=== PATIENT | male | born 1930 | race Caucasian/White ===

== ENCOUNTER 2017-11-05 08:33 | Emergency (ER) | payer MEDICARE, MEDICAID, OTHER ==
--- NOTE | 2017-11-05 09:18 | EDM.PDOC ---
ED HPI GENERAL MEDICAL PROBLEM - General Chief Complaint: Lower Extremity Injury/Pain Stated Complaint: R LEG PAIN Time Seen by Provider: 11/05/17 08:49 Source of Information: Reports: Patient, Family () History Limitations: Reports: Other (Poor historian) - History of Present Illness INITIAL COMMENTS - FREE TEXT/NARRATIVE: The patient states that he developed left lower extremity tingling and numbness , especially from the knee down, 3 or 4 days ago, and right lower extremity tingling and numbness and pain yesterday. The patient states that he self- discontinued his Lyrica on 11/01/2017, because it was making him groggy. He does not know why he is on Lyrica, and both he and his are poor medical historians overall. Review of the patient's medical records, which are sparse, indicates that the patient has a history of varicella zoster. The patient's PCP is Dr. Annette Gonzalez at the [facility]. - Related Data Allergies Allergy/AdvReac Type Severity Reaction Status Date / Time No Known Allergies Allergy Verified 05/20/15 11:36 Home Meds: Home Meds Gabapentin [Neurontin] 300 mg PO ASDIRECTED 08/08/13 [History] Levothyroxine Sodium [Synthroid] 112 mcg PO DAILY 08/08/13 [History] Naproxen Sodium [Aleve] 2 tab PO ASDIRECTED PRN 09/21/13 [History] Psyllium Seed/Aspartame [Metamucil Powder] 0 gm PO DAILY 10/30/14 [History] Sennosides/Docusate Sodium [Senna-Docusate Sodium Tablet] 1 tab PO BID 10/30/14 [History] Spironolactone [Aldactone] 25 mg PO DAILY 10/30/14 [History] Tamsulosin [Flomax] 0.4 mg PO BEDTIME 10/30/14 [History] Atenolol 12.5 mg PO DAILY 11/05/17 [History] Capsaicin [Arthritis Pain Relief] 1 applic TOP ASDIRECTED PRN 11/05/17 [History] Gabapentin [Neurontin] 600 mg PO QAM 11/05/17 [History] Hydroxychloroquine Sulfate 200 mg PO DAILY 11/05/17 [History] Omeprazole 20 mg PO DAILY 11/05/17 [History] predniSONE [Prednisone] 5 mg PO DAILY 11/05/17 [History] traMADol [Ultram] 50 mg PO DAILY 11/05/17 [History] Past Medical History HEENT History: Reports: Impaired Vision Other HEENT History: uses hearing aids bilaterally, wears eyeglasses. 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 ED EXAM, GENERAL - Physical Exam Exam: See Below Exam Limited By: No Limitations General Appearance: Alert, WD/WN, No Apparent Distress Eye Exam: Bilateral Eye: EOMI, Normal Inspection Ears: Normal External Exam, Hearing Loss (did not bring his hearing aids) Nose: Normal Inspection, No Blood Throat/Mouth: Normal Inspection, Normal Lips, Normal Voice, No Airway Compromise Head: Atraumatic, Normocephalic Neck: Normal Inspection, Full Range of Motion Respiratory/Chest: No Respiratory Distress, Lungs Clear, Normal Breath Sounds, No Accessory Muscle Use Cardiovascular: Normal Peripheral Pulses, Regular Rate, Rhythm, No Edema, No Gallop, No JVD, No Murmur, No Rub Peripheral Pulses: 4+: Radial (L), Radial (R) GI/Abdominal: Normal Bowel Sounds, Soft, Non-Tender, No Organomegaly, No Distention, No Abnormal Bruit, No Mass (Male) Exam: Deferred Rectal (Males) Exam: Deferred Back Exam: Normal Inspection, Full Range of Motion, NT Extremities: Normal Inspection, Normal Range of Motion, Non-Tender, Normal Capillary Refill, No Pedal Edema Neurological: Alert, Oriented, Normal Cognition, No Motor/Sensory Deficits Psychiatric: Normal Affect Skin Exam: Warm, Dry, Intact, Normal Color, No Rash Course - Vital Signs Last Recorded V/S: Last Vital Signs Temp 36.4 C 11/05/17 08:40 Pulse 68 11/05/17 08:40 Resp 18 11/05/17 08:40 BP 156/131 H 11/05/17 08:40 Pulse Ox 96 11/05/17 08:40 - Re-Assessments/Exams Free Text/Narrative Re-Assessment/Exam: 11/05/17 09:14 The patient's lower extremity tingling, numbness, and discomfort, is almost certainly due to the discontinuation of his Lyrica, which was most likely prescribed to treat his peripheral neuropathy. I would speculate that the peripheral neuropathy is secondary to prior varicella-zoster, however, I have no record of that. I'm recommending that the patient restart his Lyrica, then follow-up with his prescribing physician, Dr. Gonzalez, at the [facility], at the next available appointment , to discuss treatment options. Departure - Departure Time of Disposition: 09:12 Disposition: Home, Self-Care 01 Condition: Good Clinical Impression: Peripheral neuropathy - Discharge Information *PRESCRIPTION DRUG MONITORING PROGRAM REVIEWED*: Not Applicable *COPY OF PRESCRIPTION DRUG MONITORING REPORT IN PATIENT YURI: Not Applicable Referrals: Annette Gonzalez DO [Primary Care Provider] - Additional Instructions: You were seen in the emergency room for tingling, numbness, and pain of both of your lower extremities, after discontinuing your Lyrica on 11/01/2017. Your lower extremity symptoms are MOST LIKELY due to the discontinuation of your Lyrica. We recommend that you restart your Lyrica, as previously prescribed, then follow -up with your PCP, Dr. Gonzalez, at the [facility], at the next available appointment, to discuss treatment options. Any other problems, please do not hesitate to return to the ER.
[2017-11-05 09:43] VITALS: BP 108/59
== END 2017-11-05 09:25 | disposition home or self-care (01) ==
LOC: JD.ED 08:33
DX: G62.9 Polyneuropathy, unspecified (principal); I10 Essential (primary) hypertension; Z79.899 Other long term (current) drug therapy
CPT/HCPCS: 99283

== ENCOUNTER 2019-03-02 10:48 | Inpatient (IN) | payer OTHER, MEDICARE, MEDICAID ==
[2019-03-02] MEDS ORDERED: HYDROmorphone 0.5 MG/0.5 ML Syringe IVPUSH ONE (11:55)
[2019-03-02] MEDS ORDERED: Sodium Chloride 0.9% 10 ML Syringe FLUSH PRN (11:56)
--- NOTE | 2019-03-02 12:30 | EDM.PDOC ---
ED HPI GENERAL MEDICAL PROBLEM - General Chief Complaint: Lower Extremity Injury/Pain Stated Complaint: FALL/ ARM INJURY AND LEFT SIDE HIP PAIN Time Seen by Provider: 03/02/19 11:11 Source of Information: Reports: Patient, Family (), RN Notes Reviewed History Limitations: Reports: No Limitations - History of Present Illness INITIAL COMMENTS - FREE TEXT/NARRATIVE: Patient is an 88-year-old male who presents to the ED for evaluation of a fall at home today. The patient notes that around 4 AM, he was getting up for the morning, and he was in his closet and ended up tripping on the carpet, and then fell cross-hankins onto a chair. He states he has pain in his left shoulder and left hip after this. Patient denies any sort of being dizzy before this accident, he states he couldn't walk after the accident, however is very painful to do so. He would rate his pain in his hip at a 9 out of 10, and the shoulder 7 out of 10. He does note decreased range of motion of the shoulders, but this is chronic for him, and is not worse than normal. Patient was unsure if he hit his head or not, his states that he seems a little bit more fuzzy than he normally is. He takes baby aspirin daily, but is on no other blood thinners. This fall also did result in a very large skin tear of his left upper arm that the bandaged with a bandage. does note that he has a past medical history positive for rheumatoid arthritis, and has difficulty getting around the house normally. Left Shoulder Pain Score (Numeric/FACES): 7 Left Hip Pain Score (Numeric/FACES): 7 - Related Data Allergies Allergy/AdvReac Type Severity Reaction Status Date / Time No Known Allergies Allergy Verified 03/02/19 11:07 Home Meds: Home Meds Levothyroxine Sodium [Synthroid] 112 mcg PO DAILY 08/08/13 [History] Spironolactone [Aldactone] 25 mg PO DAILY 10/30/14 [History] Tamsulosin [Flomax] 0.4 mg PO BEDTIME 10/30/14 [History] Hydroxychloroquine Sulfate 200 mg PO DAILY 11/05/17 [History] Omeprazole 20 mg PO DAILY 11/05/17 [History] predniSONE [Prednisone] 5 mg PO DAILY 11/05/17 [History] Cholecalciferol (Vitamin D3) [Vitamin D3] 2 tab PO DAILY 10/10/18 [History] Pregabalin [Lyrica] 50 mg PO BID 10/10/18 [History] Aspirin [Low Dose Aspirin EC] 81 mg PO DAILY 30 Days tablet. 10/13/18 [Rx] Rosuvastatin Calcium 20 mg PO DAILY #30 tablet 10/13/18 [Rx] Carvedilol [Coreg] 3.125 mg PO BID 03/02/19 [History] Lisinopril 2.5 mg PO DAILY 03/02/19 [History] Past Medical History HEENT History: Reports: Impaired Vision Other HEENT History: uses hearing aids bilaterally, wears eyeglasses. Cardiovascular History: Reports: Hypertension Other Cardiovascular History: edema Respiratory History: Reports: Other (See Below) Other Respiratory History: R) side lungs "not working very good." Gastrointestinal History: Reports: GERD Other Gastrointestinal History: Hernia Genitourinary History: Reports: BPH Other Genitourinary History: history of having some retention. Musculoskeletal History: Reports: RA Other Musculoskeletal History: muscle weakness, lack of coordination, muscle disuse atrophy, difficulty walking Neurological History: Reports: Other (See Below) Other Neuro History: forgetful at times Psychiatric History: Reports: Other (See Below) Other Psychiatric History: insomnia Endocrine/Metabolic History: Reports: Hypothyroidism Hematologic History: Reports: None Immunologic History: Reports: None Oncologic (Cancer) History: Reports: None Dermatologic History: Reports: Psoriasis Other Dermatologic History: herpes zoster (pain related to herpes zoster) - Infectious Disease History Infectious Disease History: Reports: Chicken Pox, Mumps, Shingles - Past Surgical History Cardiovascular Surgical History: Reports: Pacer GI Surgical History: Reports: Cholecystectomy, Hernia, Inguinal Musculoskeletal 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, Hip Replacement Social & Family History - Family History Family Medical History: Noncontributory - Tobacco Use Smoking Status *Q: Unknown Ever Smoked - Caffeine Use Caffeine Use: Reports: Coffee Other Caffeine Use: 2 cups/day Review of Systems - Review of Systems Review Of Systems: See Below Constitutional: Denies: Chills, Fever Eyes: Reports: Blurred Vision. Denies: Vision Change Ears: Denies: Dizziness Respiratory: Denies: Shortness of Breath Cardiovascular: Denies: Chest Pain GI/Abdominal: Denies: Abdominal Pain Skin: Reports: Bruising (multiple areas of bruising noted to entire body), Wound (large skin tear on upper outer Left arm) Neurological: Reports: Confusion ( states he is more "fuzzy" than he normally is). Denies: Dizziness, Headache, Pre-Existing Deficit, Seizure, Syncope, Trouble Speaking, Difficulty Walking, Weakness ED EXAM, GENERAL - Physical Exam Exam: See Below Exam Limited By: No Limitations General Appearance: Alert, WD/WN, No Apparent Distress Eye Exam: Bilateral Eye: EOMI, Normal Inspection, PERRL Ears: Normal External Exam, Normal Canal, Hearing Grossly Normal, Normal TMs Nose: Normal Inspection, Normal Mucosa, No Blood Throat/Mouth: Normal Inspection, Normal Lips, Normal Teeth, Normal Gums, Normal Oropharynx, Normal Voice, No Airway Compromise Head: Atraumatic, Normocephalic Neck: Normal Inspection Respiratory/Chest: No Respiratory Distress, Lungs Clear, Normal Breath Sounds, No Accessory Muscle Use, Chest Non-Tender Cardiovascular: Normal Peripheral Pulses, Regular Rate, Rhythm, No Edema, No Murmur Peripheral Pulses: 3+: Radial (L), Radial (R) GI/Abdominal: Normal Bowel Sounds, Soft, Non-Tender, No Distention, No Mass Extremities: Normal Inspection (multiple bruises over entire body), Normal Capillary Refill, Limited Range of Motion (of upper arms bilaterally, notes this is not decreased from normal for him) Neurological: Alert, Oriented, CN II-XII Intact, Normal Cognition, No Motor/ Sensory Deficits Psychiatric: Normal Affect, Normal Mood Skin Exam: Warm, Dry, Normal Color, No Rash, Ecchymosis (multiple bruises in various stages of healing all over body.), Wound/Incision (large skin tear on upper outer Left arm) Course - Vital Signs Last Recorded V/S: Last Vital Signs Temp 98.5 F 03/02/19 11:04 Pulse 68 03/02/19 11:04 Resp 16 03/02/19 11:04 BP 115/75 03/02/19 11:04 Pulse Ox 97 03/02/19 11:04 - Orders/Labs/Meds Orders: Active Orders 24 hr Category Date Time Status Peripheral IV Care [RC] . DIRECTED Care 03/02/19 11:56 Active Sodium Chloride 0.9% [Saline Flush] Med 03/02/19 11:56 Active 10 ml FLUSH ASDIRECTED PRN Peripheral IV Insertion Adult [OM.PC] Routine Oth 03/02/19 11:56 Ordered Medication Orders Sodium Chloride (Saline Flush) 10 ml FLUSH ASDIRECTED PRN PRN Reason: Keep Vein Open Last Admin: 03/02/19 12:10 Dose: 10 ml Labs: Laboratory Tests 03/02/19 03/02/19 Range/Units 12:10 12:10 WBC 6.00 (4.23-9.07) K/mm3 RBC 3.69 L (4.63-6.08) M/mm3 Hgb 11.6 L D (13.7-17.5) gm/dl Hct 35.9 L (40.1-51.0) % MCV 97.3 H D (79.0-92.2) fl MCH 31.4 (25.7-32.2) pg MCHC 32.3 (32.2-35.5) g/dl RDW Std Deviation 52.0 H (35.1-43.9) fL Plt Count 104 L (163-337) K/mm3 MPV 9.5 (9.4-12.3) fl Neut % (Auto) 77.6 H (34.0-67.9) % Lymph % (Auto) 12.0 L (21.8-53.1) % [place] % (Auto) 8.7 (5.3-12.2) % Eos % (Auto) 1.3 (0.8-7.0) Baso % (Auto) 0.2 (0.1-1.2) % Neut # (Auto) 4.66 (1.78-5.38) K/mm3 Lymph # (Auto) 0.72 L (1.32-3.57) K/mm3 [place] # (Auto) 0.52 (0.30-0.82) K/mm3 Eos # (Auto) 0.08 (0.04-0.54) K/mm3 Baso # (Auto) 0.01 (0.01-0.08) K/mm3 Sodium 138 (136-145) mEq/L Potassium 4.4 (3.5-5.1) mEq/L Chloride 105 (98-107) mEq/L Carbon Dioxide 28 (21-32) mEq/L Anion Gap 9.4 (5-15) BUN 20 H (7-18) mg/dL Creatinine 1.2 (0.7-1.3) mg/dL Est Cr Clr Drug Dosing 37.66 mL/min Estimated GFR (MDRD) 57 (>60) mL/min BUN/Creatinine Ratio 16.7 (14-18) Glucose 104 (83-115) mg/dL Calcium 8.4 L (8.5-10.1) mg/dL Total Bilirubin 0.4 (0.2-1.0) mg/dL AST 47 H (15-37) U/L ALT 41 (16-63) U/L Alkaline Phosphatase 92 (46-116) U/L Total Protein 6.0 L (6.4-8.2) g/dl Albumin 2.9 L (3.4-5.0) g/dl Globulin 3.1 gm/dL Albumin/Globulin Ratio 0.9 L (1-2) Meds: Medications Generic Name Dose Route Start Last Admin Trade Name Freq PRN Reason Stop Dose Admin Sodium Chloride 10 ml 03/02/19 11:56 03/02/19 12:10 Saline Flush FLUSH 10 ml ASDIRECTED PRN Administration Keep Vein Open Discontinued Medications Generic Name Dose Route Start Last Admin Trade Name Freq PRN Reason Stop Dose Admin Hydromorphone HCl 0.5 mg 03/02/19 11:55 03/02/19 12:11 Dilaudid IVPUSH 03/02/19 11:56 0.5 mg ONETIME ONE Administration - Re-Assessments/Exams Free Text/Narrative Re-Assessment/Exam: 03/02/19 12:36 Patient presents to the ED for evaluation of a fall. Did order L shoulder x-ray , left hip x-ray, and a head CT for evaluation did also order an IV be placed with basic labs including CBC and CMP for initial evaluation as well. Did order 0.5 mg IV Dilaudid for pain management. 03/02/19 13:[address] is done and demonstrates no acute bleeds or abnormalities. I have requested the hip have an official radiology read d/t the prosthesis present. Pt notes that he did get okay pain control from the Dilaudid given. Labs are also back, demonstrate no focal acute abnormalities. Patient is mildly anemic, but not worrisome at today's visit. 03/02/19 13:41 Patient's discussed with me the possibility of the possibility of [place] [facility] placement again, as he used to be at [facility], but she brought him home. She is worried that he will have more falls and seriously end up hurting himself. I did talk with Annalise, our health care social worker, and she will speak with the regarding their options. The patient may need to be admitted here for failure to thrive and then find [place] [facility] placement. 03/02/19 14:03 Annalise our health care social worker, was in contact with [facility], they have no issue excepting the patient for placement again. However they do not wish to do so over the weekend. Patient will be admitted to the hospital for risk placement on Tuesday. Have discussed the case over Dr. [place], and she is okay with this admission at this time. She will be in to evaluate the patient at bedside. 03/02/19 14:13 Patient's x-rays are read, there appears to be great alignment with the left hip prosthesis, but no acute fractures or bony abnormalities. Shoulder x-ray also does not appear to have any acute fractures or abnormalities, radiologist suspects findings compatible with chronic rotator cuff tear, and osteopenia. Departure - Departure Time of Disposition: 14:04 Disposition: Admitted As Inpatient 66 Condition: Fair Clinical Impression: Failure to thrive in adult Fall at home Qualifiers: Encounter type: initial encounter Qualified Code(s): W19.XXXA - Unspecified fall, initial encounter - Discharge Information *PRESCRIPTION DRUG MONITORING PROGRAM REVIEWED*: No *COPY OF PRESCRIPTION DRUG MONITORING REPORT IN PATIENT YURI: No Referrals: Anastasia Jenkins MD [Primary Care Provider] - Forms: ED Department Discharge Sepsis Event Note - Evaluation Sepsis Screening Result: No Definite Risk - Focused Exam Vital Signs: Vital Signs Temp Pulse Resp BP Pulse Ox 03/02/19 11:04 98.5 F 68 16 115/75 97 Date Exam was Performed: 03/02/19 Time Exam was Performed: - My Orders Last 24 Hours: My Active Orders 03/02/19 11:56 Peripheral IV Care [RC] . DIRECTED Sodium Chloride 0.9% [Saline Flush] 10 ml FLUSH ASDIRECTED PRN Peripheral IV Insertion Adult [OM.PC] Routine - Assessment/Plan Last 24 Hours: My Active Orders 03/02/19 11:56 Peripheral IV Care [RC] . DIRECTED Sodium Chloride 0.9% [Saline Flush] 10 ml FLUSH ASDIRECTED PRN Peripheral IV Insertion Adult [OM.PC] Routine
--- NOTE | 2019-03-02 13:23 | CT ---
Head CT Technique: Multiple axial sections through the brain were obtained. Intravenous contrast was not utilized. Comparison: No prior intracranial imaging is available. Findings: Ventricles along with basal cisterns and sulci over the convexities are moderately prominent. Minimal diminished density is noted within the periventricular white matter compatible with small vessel ischemic demyelination change. No other abnormal parenchymal densities are seen. No evidence of intracranial hemorrhage. No midline shift or mass effect is seen. Atherosclerotic calcification is seen within the carotid siphon. Bone window settings were reviewed. Hypoplastic left mastoid sinus is seen believed to be a normal variant. No acute findings are seen within the mastoid sinuses or within the visualized paranasal sinuses. No acute calvarial abnormality is appreciated. Impression: 1. Senescent change and other findings believed to be incidental. 2. Nothing acute is appreciated on noncontrast head CT exam. Diagnostic code #2 This report was dictated in [place] Standard Time
--- NOTE | 2019-03-02 14:08 | CR ---
Left shoulder: Three views of the left shoulder were obtained. Comparison: No prior left shoulder exam, previous left humerus study of 10/10/18. Humeral head is superiorly subluxed compatible with chronic rotator cuff tear. Osteopenia is noted. No acute fracture or other abnormality is appreciated. Impression: 1. Findings compatible with chronic rotator cuff tear within the left shoulder causing superior subluxation of the humeral head. 2. Osteopenia. 3. No acute finding is seen. Diagnostic code #2 This report was dictated in [place] Standard Time
--- NOTE | 2019-03-02 14:08 | CR ---
Pelvis and left hip: AP view of the pelvis was obtained as well as AP and crosstable lateral views of the left hip. Comparison: Previous pelvis and right hip exam of 10/10/18. Left hip prosthesis is seen. Components are aligned. Position of the femoral stem is stable which is placed laterally which I suspect is a chronic finding as there is bridging bone around the prosthetic stem. Osteopenia is noted. Severe joint space narrowing and spurring is noted within the right hip. Diffuse disc space narrowing is noted within the lower lumbar spine. Vascular calcification is seen. No acute fracture is seen. Impression: 1. Findings as noted above. 2. Nothing acute is suspected. Diagnostic code #2 This report was dictated in [place] Standard Time
[2019-03-02] MEDS ORDERED: Ondansetron 4 MG/2 ML SDV IV PRN (15:25)
[2019-03-02] MEDS ORDERED: Ondansetron 4 MG Tab.DIS PO PRN (15:25)
--- NOTE | 2019-03-02 16:03 | PCM.HP.2 ---
H&P History of Present Illness - General Date of Service: 03/02/19 Admit Problem/Dx: Admission Diagnosis/Problem Admission Diagnosis/Problem Failure to thrive - History of Present Illness Initial Comments - Free Text/Narative: This is an 88-year-old male with past medical history of hypertension and rheumatoid arthritis who comes to the ED brought by after a fall. As per patient he fell earlier this morning around 4AM. He woke up and went to his closet, when he went to close the door so he could sit in a chair, the he lost his balance and fell. He describes his fall over the other chair and his hands got tangled in the arm rests. He couldn't get up so he called out to his who didn't hear him. He lay on the floor tangled between the chairs for 1 hour until he managed to untangle himself and get help. He denies any chest pain, dizziness, LOC, nausea, vomiting, abdominal discomfort , headaches, seizure movements, auras prior to fall. He also denies any loss of continence both bowel and urinary, altered mental status or head trauma. Left Shoulder Pain Score (Numeric/FACES): 7 Left Hip Pain Score (Numeric/FACES): 7 - Related Data Allergies/Adverse Reactions: Allergies Allergy/AdvReac Type Severity Reaction Status Date / Time No Known Allergies Allergy Verified 03/02/19 11:07 Home Medications: Home Meds Levothyroxine Sodium [Synthroid] 112 mcg PO DAILY 08/08/13 [History] Spironolactone [Aldactone] 25 mg PO DAILY 10/30/14 [History] Tamsulosin [Flomax] 0.4 mg PO BEDTIME 10/30/14 [History] Hydroxychloroquine Sulfate 200 mg PO DAILY 11/05/17 [History] Omeprazole 20 mg PO DAILY 11/05/17 [History] predniSONE [Prednisone] 5 mg PO DAILY 11/05/17 [History] Cholecalciferol (Vitamin D3) [Vitamin D3] 2 tab PO DAILY 10/10/18 [History] Pregabalin [Lyrica] 50 mg PO BID 10/10/18 [History] Aspirin [Low Dose Aspirin EC] 81 mg PO DAILY 30 Days tablet. 10/13/18 [Rx] Rosuvastatin Calcium 20 mg PO DAILY #30 tablet 10/13/18 [Rx] Carvedilol [Coreg] 3.125 mg PO BID 03/02/19 [History] Lisinopril 2.5 mg PO DAILY 03/02/19 [History] Past Medical History HEENT History: Reports: Impaired Vision Other HEENT History: uses hearing aids bilaterally, wears eyeglasses. Cardiovascular History: Reports: Hypertension Other Cardiovascular History: edema Respiratory History: Reports: Other (See Below) Other Respiratory History: R) side lungs "not working very good." Gastrointestinal History: Reports: GERD Other Gastrointestinal History: Hernia Genitourinary History: Reports: BPH Other Genitourinary History: history of having some retention. Musculoskeletal History: Reports: RA Other Musculoskeletal History: muscle weakness, lack of coordination, muscle disuse atrophy, difficulty walking Neurological History: Reports: Other (See Below) Other Neuro History: forgetful at times Psychiatric History: Reports: Other (See Below) Other Psychiatric History: insomnia Endocrine/Metabolic History: Reports: Hypothyroidism Hematologic History: Reports: None Immunologic History: Reports: None Oncologic (Cancer) History: Reports: None Dermatologic History: Reports: Psoriasis Other Dermatologic History: herpes zoster (pain related to herpes zoster) - Infectious Disease History Infectious Disease History: Reports: Chicken Pox, Mumps, Shingles - Past Surgical History Cardiovascular Surgical History: Reports: Pacer GI Surgical History: Reports: Cholecystectomy, Hernia, Inguinal Musculoskeletal 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, Hip Replacement Social & Family History - Family History Family Medical History: Noncontributory - Tobacco Use Smoking Status *Q: Unknown Ever Smoked - Caffeine Use Caffeine Use: Reports: Coffee Other Caffeine Use: 2 cups/day H&P Review of Systems - Review of Systems: Review Of Systems: See Below General: Denies: Fever, Chills, Malaise, Weakness, Fatigue, Night Sweats, Diaphoresis, Decreased Appetite, Weight Loss, Weight Gain HEENT: Denies: Headaches, Rhinitis, Post Nasal Drip, Sinus Congestion, Sore Throat, Vertigo, Visual Changes Pulmonary: Denies: Shortness of Breath, Wheezing, Pleuritic Chest Pain, Cough, Sputum, Hemoptysis Cardiovascular: Denies: Chest Pain, Palpitations, Dyspnea on Exertion, Orthopnea , PND, Edema, Lightheadedness, Syncope Gastrointestinal: Reports: Constipation (BM every 3-4 days). Denies: Abdominal Pain, Anorexia, Diarrhea, Difficulty Swallowing, Distension, Flatus, Nausea, Vomiting Genitourinary: Denies: Dysuria, Frequency, Burning, Pain, Urgency, Incontinence Musculoskeletal: Reports: Joint Pain Skin: Reports: Wound (excoriation on lateral left shoulder). Denies: Cyanosis, Jaundice, Mottled, Pallor, Diaphoresis, Dryness Psychiatric: Reports: Depression, Anxiety. Denies: Confusion, Mood Lability, Agitation, Suicidal Ideation, Homicidal Ideation Neurological: Denies: Confusion, Dizziness, Headache, Numbness, Paresthesia, Seizure, Syncope, Tingling, Tremors Hematologic/Lymphatic: Denies: Anemia Immunologic: Denies: Anaphylaxis, Food Allergy Exam - Exam Exam: See Below - Vital Signs Vital Signs: Last Vital Signs Temp 98.5 F 03/02/19 11:04 Pulse 68 03/02/19 11:04 Resp 16 03/02/19 11:04 BP 115/75 03/02/19 11:04 Pulse Ox 97 03/02/19 11:04 Weight: 72.575 kg - Exam General: Alert, Oriented, Cooperative. No: Mild Distress HEENT: Conjunctiva Clear, EACs Clear, EOMI, Mucosa Moist & [place]. No: Hearing Intact Neck: Supple, Trachea Midline, +2 Carotid Pulse wo Bruit. No: Lymphadenopathy Lungs: Clear to Auscultation, Normal Respiratory Effort. No: Crackles, Rales, Rub, Stridor, Wheezing Cardiovascular: Regular Rate, Regular Rhythm. No: Systolic Murmur, Diastolic Murmur, Rubs, Gallop/S3, Gallop/S4 GI/Abdominal Exam: Normal Bowel Sounds, Soft, Non-Tender, No Organomegaly, No Distention Extremities: No Pedal Edema, Normal Capillary Refill, Other (multiple deformities from long standing arthritis) Skin: Wound (excoriation on lateral L shoulder) Neuro Extensive - Mental Status: Alert, Oriented x3, Normal Mood/Affect, Normal Cognition Psychiatric: Alert - Patient Data Result Diagrams: 03/02/19 12:10 03/02/19 12:10 Sepsis Event Note - Evaluation Sepsis Screening Result: No Definite Risk - Focused Exam Vital Signs: Vital Signs Temp Pulse Resp BP Pulse Ox 03/02/19 11:04 98.5 F 68 16 115/75 97 Date Exam was Performed: 03/02/19 Time Exam was Performed: 18:45 - Problem List (1) Fall at home SNOMED Code(s): 85913818 ICD Code: W19.XXXA - UNSPECIFIED FALL, INITIAL ENCOUNTER; Y92.009 - UNSP PLACE IN UNSP NON-INSTITUT (PRIVATE) RESIDENCE PLACE Status: Acute Current Visit: Yes Qualifiers: Encounter type: initial encounter Qualified Code(s): W19.XXXA - Unspecified fall, initial encounter; Y92.009 - Unspecified place in unspecified non-institutional (private) residence as the place of occurrence of the external cause (2) Failure to thrive in adult SNOMED Code(s): 804504648 ICD Code: R62.7 - ADULT FAILURE TO THRIVE Status: Acute Current Visit: Yes (3) Rheumatoid arthritis SNOMED Code(s): 12569101 ICD Code: M06.9 - RHEUMATOID ARTHRITIS, UNSPECIFIED Status: Acute Current Visit: Yes (4) Benign prostate hyperplasia SNOMED Code(s): 337644333 ICD Code: N40.0 - BENIGN PROSTATIC HYPERPLASIA WITHOUT LOWER URINRY TRACT SYMP Status: Acute Current Visit: Yes (5) Hypertension SNOMED Code(s): 19301389 ICD Code: I10 - ESSENTIAL (PRIMARY) HYPERTENSION Status: Acute Current Visit: Yes (6) Immunosuppression due to chronic steroid use SNOMED Code(s): 148959191, 733731242 ICD Code: Z79.52 - CHOCOLATE MAKER (CURRENT) USE OF SYSTEMIC STEROIDS Status: Acute Current Visit: Yes (7) Long-term use of immunosuppressant medication SNOMED Code(s): 441913312 ICD Code: Z79.899 - OTHER SENIOR LIVING (CURRENT) DRUG THERAPY Status: Acute Current Visit: Yes (8) Constipation SNOMED Code(s): 12719870 ICD Code: K59.00 - CONSTIPATION, UNSPECIFIED Status: Acute Current Visit : No Qualifiers: Constipation type: unspecified constipation type Qualified Code(s): K59.00 - Constipation, unspecified (9) Hypothyroidism SNOMED Code(s): 39156639 ICD Code: E03.9 - HYPOTHYROIDISM, UNSPECIFIED Status: Acute Current Visit : No (10) Polypharmacy SNOMED Code(s): 388360436 ICD Code: Z79.899 - OTHER CHOCOLATE MAKER (CURRENT) DRUG THERAPY Status: Acute Current Visit: Yes (11) Macrocytic anemia SNOMED Code(s): 27123604 ICD Code: D53.9 - NUTRITIONAL ANEMIA, UNSPECIFIED Status: Acute Current Visit: Yes (12) Hypoalbuminemia SNOMED Code(s): 971938997 ICD Code: E88.09 - OTH DISORDERS OF PLASMA-PROTEIN METABOLISM, NEC Status: Acute Current Visit: Yes (13) Chronic kidney disease, stage 3a SNOMED Code(s): 506806171 ICD Code: N18.3 - CHRONIC KIDNEY DISEASE, STAGE 3 (MODERATE) Status: Acute Current Visit: Yes Problem List Initiated/Reviewed/Updated: Yes Assessment/Plan Comment:: Fall at home Failure to thrive in adult This morning Has fallen once prior to this time Both him and voiced the need to be placed in a alf No fractures PLAN - PT/OT evaluation and recommendations - Case management and social media assistant aware of case Rheumatoid arthritis Long-term use of immunosuppressant medication Immunosuppression due to chronic steroid use Home management with hydroxychloroquine and prednisone Long standing Significant deformities in hands corresponding with long standing disease PLAN - Continue home medications Hypertension BP on admission 115/75 Home management with lisinopril very low dose It is unlikely this dose is actually affecting his BP PLAN - Hold lisinopril - PRN hydralazine - Orthostatic VS in am Chronic kidney disease, stage 3A Macrocytic anemia GFR 57, at baseline Anemia likely multifactorial PLAN - Renally dosed medications - Avoid nephrotoxic agents - Hold lisinopril - Monitor urine output - Anemia work up Constipation Usually has a BM every 3-4 days Home management with prune juice and scheduled docusate and senna PLAN - Confirm last BM - As needed laxatives Hypothyroidism No acute issues Home management with levothyroxine PLAN - Continue home levothyroxine Benign prostate hyperplasia No recent episodes of urinary retention PLAN - Continue home tamsulosin Polypharmacy 16 prescription medications PLAN - Adjust according to BEERs criteria during admission PROPHYLAXIS DVT- TEDs GI- not indicated CODE STATUS: DNR/DNI DISPOSITION: Patient will be admitted to medical floor for physical and occupational therapy evaluation and treatment as well as recommendations for discharge planing. it support manager and social media assistant aware of case. Patient currently lives with in [place], is independent only for eating, toileting and some ambulation; states she is unable to provide care he needs. - Mortality Measure Prognosis:: Poor (very poor functional status, e prognosis 1 year mortality predicted at 34%, between 29-39%)
[2019-03-02] MEDS: Spironolactone 25 MG Tab PO SCH (20:26)
[2019-03-02] MEDS: Carvedilol 3.125 MG Tab PO SCH (21:35)
[2019-03-02] MEDS: Tamsulosin 0.4 MG Cap.ER PO SCH (21:35)
[2019-03-03] MEDS: Levothyroxine 112 MCG Tab PO SCH (07:23)
[2019-03-03] MEDS: Cholecalciferol (Vitamin D3) 25 MCG Tab PO SCH (09:20)
[2019-03-03] MEDS: Hydroxychloroquine 200 MG Tab PO SCH (09:21)
[2019-03-03] MEDS: Spironolactone 25 MG Tab PO SCH (09:21)
[2019-03-03] MEDS: predniSONE 5 MG Tab PO SCH (09:21)
[2019-03-03] MEDS: Carvedilol 3.125 MG Tab PO SCH ×2 (09:21→20:24)
[2019-03-03] MEDS: Aspirin 81 MG Tab.EC PO SCH (09:21)
--- NOTE | 2019-03-03 18:04 | PCM.PN ---
- General Info Date of Service: 03/03/19 Subjective Update: Slept ok Tolerating diet 1 person assist to chair - Patient Data Vitals - Most Recent: Last Vital Signs Temp 97.7 F 03/03/19 15:18 Pulse 65 03/03/19 12:54 Resp 20 03/03/19 12:54 BP 140/93 H 03/03/19 12:54 Pulse Ox 97 03/03/19 12:54 Weight - Most Recent: 73.663 kg - Exam General: Alert, Oriented, Cooperative, No Acute Distress HEENT: Pupils Equal, Pupils Reactive, Mucous Membr. Moist/[place] Neck: Supple, Trachea Midline Lungs: Clear to Auscultation, Normal Respiratory Effort. No: Crackles, Rales, Rhonchi, Rub, Stridor, Wheezing Cardiovascular: Regular Rate, Regular Rhythm. No: Murmurs, Gallops, Rubs GI/Abdominal Exam: Normal Bowel Sounds, Soft, Non-Tender, No Organomegaly Back Exam: Normal Inspection Extremities: Normal Inspection, Normal Range of Motion, Non-Tender, No Pedal Edema, Normal Capillary Refill Sepsis Event Note - Evaluation Sepsis Screening Result: No Definite Risk - Focused Exam Vital Signs: Vital Signs Temp Temp Pulse Resp BP Pulse Ox 03/03/19 15:18 97.7 F 03/03/19 13:02 97.0 F 03/03/19 12:54 65 20 140/93 H 97 03/03/19 09:21 67 116/50 L 03/03/19 09:07 98.1 F 67 12 116/50 L 94 L Date Exam was Performed: 03/03/19 Time Exam was Performed: 19:51 - Problem List & Annotations (1) Fall at home SNOMED Code(s): 89307775 Code(s): W19.XXXA - UNSPECIFIED FALL, INITIAL ENCOUNTER; Y92.009 - UNSP PLACE IN UNSP NON-INSTITUT (PRIVATE) RESIDENCE PLACE Status: Acute Current Visit: Yes Qualifiers: Encounter type: initial encounter Qualified Code(s): W19.XXXA - Unspecified fall, initial encounter; Y92.009 - Unspecified place in unspecified non-institutional (private) residence as the place of occurrence of the external cause (2) Failure to thrive in adult SNOMED Code(s): 648180630 Code(s): R62.7 - ADULT FAILURE TO THRIVE Status: Acute Current Visit: Yes (3) Rheumatoid arthritis SNOMED Code(s): 80251423 Code(s): M06.9 - RHEUMATOID ARTHRITIS, UNSPECIFIED Status: Acute Current Visit: Yes (4) Benign prostate hyperplasia SNOMED Code(s): 460271429 Code(s): N40.0 - BENIGN PROSTATIC HYPERPLASIA WITHOUT LOWER URINRY TRACT SYMP Status: Acute Current Visit: Yes (5) Hypertension SNOMED Code(s): 21118232 Code(s): I10 - ESSENTIAL (PRIMARY) HYPERTENSION Status: Acute Current Visit: Yes (6) Immunosuppression due to chronic steroid use SNOMED Code(s): 212489774, 197127462 Code(s): Z79.52 - ELEMENT WINDING MACHINE TENDER (CURRENT) USE OF SYSTEMIC STEROIDS Status: Acute Current Visit: Yes (7) Long-term use of immunosuppressant medication SNOMED Code(s): 923311948 Code(s): Z79.899 - OTHER HALF-WAY (CURRENT) DRUG THERAPY Status: Acute Current Visit: Yes (8) Constipation SNOMED Code(s): 07843368 Code(s): K59.00 - CONSTIPATION, UNSPECIFIED Status: Acute Current Visit: No Qualifiers: Constipation type: unspecified constipation type Qualified Code(s): K59.00 - Constipation, unspecified (9) Hypothyroidism SNOMED Code(s): 07099960 Code(s): E03.9 - HYPOTHYROIDISM, UNSPECIFIED Status: Acute Current Visit : No (10) Polypharmacy SNOMED Code(s): 701380208 Code(s): Z79.899 - OTHER ELEMENT WINDING MACHINE TENDER (CURRENT) DRUG THERAPY Status: Acute Current Visit: Yes (11) Macrocytic anemia SNOMED Code(s): 55300974 Code(s): D53.9 - NUTRITIONAL ANEMIA, UNSPECIFIED Status: Acute Current Visit: Yes (12) Hypoalbuminemia SNOMED Code(s): 317580887 Code(s): E88.09 - OTH DISORDERS OF PLASMA-PROTEIN METABOLISM, NEC Status: Acute Current Visit: Yes (13) Chronic kidney disease, stage 3a SNOMED Code(s): 102143640 Code(s): N18.3 - CHRONIC KIDNEY DISEASE, STAGE 3 (MODERATE) Status: Acute Current Visit: Yes - Problem List Review Problem List Initiated/Reviewed/Updated: Yes - Plan Plan:: Fall at home Failure to thrive in adult This morning Has fallen once prior to this time Both him and voiced the need to be placed in a correction No fractures Currently requiring 1 person assist PLAN - PT/OT evaluation and recommendations - Case management and family welfare social work professor aware of case Rheumatoid arthritis Long-term use of immunosuppressant medication Immunosuppression due to chronic steroid use Home management with hydroxychloroquine and prednisone Long standing Significant deformities in hands corresponding with long standing disease PLAN - Continue home medications Hypertension BP trend 118-131/67-79 Home management with lisinopril very low dose It is unlikely this dose is actually affecting his BP PLAN - Hold lisinopril - PRN hydralazine - Orthostatic VS in am Chronic kidney disease, stage 3A Macrocytic anemia of chronic disease GFR 57, at baseline B12, folic acid and ferritin negative--> AOCD PLAN - Renally dosed medications - Avoid nephrotoxic agents - Hold lisinopril - Monitor urine output Constipation Usually has a BM every 3-4 days Home management with prune juice and scheduled docusate and senna PLAN - Confirm last BM - As needed laxatives Hypothyroidism No acute issues Home management with levothyroxine PLAN - Continue home levothyroxine Benign prostate hyperplasia No recent episodes of urinary retention PLAN - Continue home tamsulosin Polypharmacy 16 prescription medications PLAN - Adjust according to BEERs criteria during admission PROPHYLAXIS DVT- TEDs GI- not indicated CODE STATUS: DNR/DNI DISPOSITION: Patient will be admitted to medical floor for physical and occupational therapy evaluation and treatment as well as recommendations for discharge planing. manager benefit and family welfare social work professor aware of case. Patient currently lives with in [facility], is independent only for eating, toileting and some ambulation; states she is unable to provide care he needs. 1 person assist up to chair
[2019-03-03] MEDS: Tamsulosin 0.4 MG Cap.ER PO SCH (20:24)
[2019-03-03] MEDS: Nicotine 21 MG/24 Hr Patch TRDERM SCH (20:24)
[2019-03-04] MEDS: Levothyroxine 112 MCG Tab PO SCH (06:24)
[2019-03-04] MEDS: Cholecalciferol (Vitamin D3) 25 MCG Tab PO SCH (08:21)
[2019-03-04] MEDS: Spironolactone 25 MG Tab PO SCH (08:22)
[2019-03-04] MEDS: Carvedilol 3.125 MG Tab PO SCH ×2 (08:24→20:45)
[2019-03-04] MEDS: predniSONE 5 MG Tab PO SCH (08:25)
[2019-03-04] MEDS: Aspirin 81 MG Tab.EC PO SCH (08:25)
[2019-03-04] MEDS: Hydroxychloroquine 200 MG Tab PO SCH (08:26)
[2019-03-04] MEDS: Nicotine 21 MG/24 Hr Patch TRDERM SCH (08:31)
--- NOTE | 2019-03-04 14:52 | PCM.PN ---
- General Info Date of Service: 03/04/19 Subjective Update: slept ok Tolerating diet - Patient Data Vitals - Most Recent: Last Vital Signs Temp 96.8 F 03/04/19 08:05 Pulse 69 03/04/19 08:25 Resp 20 03/04/19 08:05 BP 119/89 03/04/19 08:24 Pulse Ox 97 03/04/19 08:25 Weight - Most Recent: 71.849 kg - Exam General: Alert, No Acute Distress HEENT: Pupils Equal, Pupils Reactive, EOMI, Mucous Membr. Moist/[place] Neck: Supple, Trachea Midline, No JVD, No Thyromegaly Lungs: Clear to Auscultation, Decreased Breath Sounds Cardiovascular: Regular Rate, Regular Rhythm GI/Abdominal Exam: Normal Bowel Sounds, Soft, Non-Tender Neurological: No New Focal Deficit Sepsis Event Note - Evaluation Sepsis Screening Result: No Definite Risk - Focused Exam Vital Signs: Vital Signs Temp Pulse Resp BP Pulse Ox 03/04/19 08:25 69 97 03/04/19 08:24 69 119/89 03/04/19 08:05 96.8 F 56 L 20 119/89 100 Date Exam was Performed: 03/04/19 Time Exam was Performed: 17:15 - Problem List & Annotations (1) Fall at home SNOMED Code(s): 79137665 Code(s): W19.XXXA - UNSPECIFIED FALL, INITIAL ENCOUNTER; Y92.009 - UNSP PLACE IN UNSP NON-INSTITUT (PRIVATE) RESIDENCE PLACE Status: Acute Current Visit: Yes Qualifiers: Encounter type: initial encounter Qualified Code(s): W19.XXXA - Unspecified fall, initial encounter; Y92.009 - Unspecified place in unspecified non-institutional (private) residence as the place of occurrence of the external cause (2) Failure to thrive in adult SNOMED Code(s): 054522501 Code(s): R62.7 - ADULT FAILURE TO THRIVE Status: Acute Current Visit: Yes (3) Rheumatoid arthritis SNOMED Code(s): 58528945 Code(s): M06.9 - RHEUMATOID ARTHRITIS, UNSPECIFIED Status: Acute Current Visit: Yes (4) Benign prostate hyperplasia SNOMED Code(s): 646595313 Code(s): N40.0 - BENIGN PROSTATIC HYPERPLASIA WITHOUT LOWER URINRY TRACT SYMP Status: Acute Current Visit: Yes (5) Hypertension SNOMED Code(s): 00793612 Code(s): I10 - ESSENTIAL (PRIMARY) HYPERTENSION Status: Acute Current Visit: Yes (6) Immunosuppression due to chronic steroid use SNOMED Code(s): 806865304, 253575408 Code(s): Z79.52 - LONGTERM (CURRENT) USE OF SYSTEMIC STEROIDS Status: Acute Current Visit: Yes (7) Long-term use of immunosuppressant medication SNOMED Code(s): 848358721 Code(s): Z79.899 - OTHER LONGTERM (CURRENT) DRUG THERAPY Status: Acute Current Visit: Yes (8) Constipation SNOMED Code(s): 95887005 Code(s): K59.00 - CONSTIPATION, UNSPECIFIED Status: Acute Current Visit: No Qualifiers: Constipation type: unspecified constipation type Qualified Code(s): K59.00 - Constipation, unspecified (9) Hypothyroidism SNOMED Code(s): 89819819 Code(s): E03.9 - HYPOTHYROIDISM, UNSPECIFIED Status: Acute Current Visit : No (10) Polypharmacy SNOMED Code(s): 682110015 Code(s): Z79.899 - OTHER INSOLE TAPER (CURRENT) DRUG THERAPY Status: Acute Current Visit: Yes (11) Macrocytic anemia SNOMED Code(s): 26365375 Code(s): D53.9 - NUTRITIONAL ANEMIA, UNSPECIFIED Status: Acute Current Visit: Yes (12) Hypoalbuminemia SNOMED Code(s): 932161698 Code(s): E88.09 - OTH DISORDERS OF PLASMA-PROTEIN METABOLISM, NEC Status: Acute Current Visit: Yes (13) Chronic kidney disease, stage 3a SNOMED Code(s): 649730277 Code(s): N18.3 - CHRONIC KIDNEY DISEASE, STAGE 3 (MODERATE) Status: Acute Current Visit: Yes - Problem List Review Problem List Initiated/Reviewed/Updated: Yes - Plan Plan:: Fall at home Failure to thrive in adult This morning Has fallen once prior to this time Both him and voiced the need to be placed in a half-way No fractures Currently requiring 1 person assist PLAN - PT/OT evaluation and recommendations - Case management and social services designee aware of case Rheumatoid arthritis Long-term use of immunosuppressant medication Immunosuppression due to chronic steroid use Home management with hydroxychloroquine and prednisone Long standing Significant deformities in hands corresponding with long standing disease PLAN - Continue home medications Hypertension BP trend 109-140/50-56 Home management with lisinopril very low dose It is unlikely this dose is actually affecting his BP PLAN - Hold lisinopril - PRN hydralazine - Orthostatic VS in am Chronic kidney disease, stage 3A Macrocytic anemia of chronic disease GFR 57, at baseline B12, folic acid and ferritin negative--> AOCD PLAN - Renally dosed medications - Avoid nephrotoxic agents - Hold lisinopril - Monitor urine output Constipation Usually has a BM every 3-4 days Home management with prune juice and scheduled docusate and senna PLAN - As needed laxatives Hypothyroidism No acute issues Home management with levothyroxine PLAN - Continue home levothyroxine Benign prostate hyperplasia No recent episodes of urinary retention PLAN - Continue home tamsulosin Polypharmacy 16 prescription medications PLAN - Adjust according to BEERs criteria during admission PROPHYLAXIS DVT- TEDs GI- not indicated CODE STATUS: DNR/DNI DISPOSITION: Patient will be admitted to medical floor for physical and occupational therapy evaluation and treatment as well as recommendations for discharge planing. manager systems and social services designee aware of case. Patient currently lives with in [facility], is independent only for eating, toileting and some ambulation; states she is unable to provide care he needs. 1 person assist up to chair
[2019-03-04] MEDS: Tamsulosin 0.4 MG Cap.ER PO SCH (20:45)
[2019-03-04] MEDS: Acetaminophen 325 MG Tab PO PRN (20:45)
[2019-03-05] MEDS: Levothyroxine 112 MCG Tab PO SCH (05:19)
[2019-03-05] MEDS: Acetaminophen 325 MG Tab PO PRN ×2 (05:19→20:32)
[2019-03-05] MEDS: Cholecalciferol (Vitamin D3) 25 MCG Tab PO SCH (08:16)
[2019-03-05] MEDS: Carvedilol 3.125 MG Tab PO SCH ×2 (08:16→20:32)
[2019-03-05] MEDS: predniSONE 5 MG Tab PO SCH (08:17)
[2019-03-05] MEDS: Spironolactone 25 MG Tab PO SCH (08:19)
[2019-03-05] MEDS: Hydroxychloroquine 200 MG Tab PO SCH (08:19)
[2019-03-05] MEDS: Nicotine 21 MG/24 Hr Patch TRDERM SCH (08:20)
[2019-03-05] MEDS: Aspirin 81 MG Tab.EC PO SCH (08:20)
--- NOTE | 2019-03-05 15:28 | PCM.PN ---
- General Info Date of Service: 03/05/19 Subjective Update: Slept ok No pain or other complaints - Patient Data Vitals - Most Recent: Last Vital Signs Temp 96.7 F 03/05/19 08:14 Pulse 68 03/05/19 08:16 Resp 16 03/05/19 08:14 BP 110/67 03/05/19 08:16 Pulse Ox 98 03/05/19 08:14 Weight - Most Recent: 71.078 kg - Exam Physical Findings Comments:: General: Alert, No Acute Distress HEENT: Pupils Equal, Pupils Reactive, EOMI, Mucous Membr. Moist/[place] Neck: Supple, Trachea Midline, No JVD, No Thyromegaly Lungs: Clear to Auscultation, Decreased Breath Sounds Cardiovascular: Regular Rate, Regular Rhythm GI/Abdominal Exam: Normal Bowel Sounds, Soft, Non-Tender Neurological: No New Focal Deficit Sepsis Event Note - Evaluation Sepsis Screening Result: No Definite Risk - Focused Exam Vital Signs: Vital Signs Temp Pulse Pulse Resp BP Pulse Ox 03/05/19 08:16 68 110/67 03/05/19 08:14 96.7 F 68 16 98 Date Exam was Performed: 03/05/19 Time Exam was Performed: 15:28 - Problem List & Annotations (1) Fall at home SNOMED Code(s): 29306070 Code(s): W19.XXXA - UNSPECIFIED FALL, INITIAL ENCOUNTER; Y92.009 - UNSP PLACE IN UNSP NON-INSTITUT (PRIVATE) RESIDENCE PLACE Status: Acute Current Visit: Yes Qualifiers: Encounter type: initial encounter Qualified Code(s): W19.XXXA - Unspecified fall, initial encounter; Y92.009 - Unspecified place in unspecified non-institutional (private) residence as the place of occurrence of the external cause (2) Failure to thrive in adult SNOMED Code(s): 581147891 Code(s): R62.7 - ADULT FAILURE TO THRIVE Status: Acute Current Visit: Yes (3) Rheumatoid arthritis SNOMED Code(s): 03911292 Code(s): M06.9 - RHEUMATOID ARTHRITIS, UNSPECIFIED Status: Acute Current Visit: Yes (4) Benign prostate hyperplasia SNOMED Code(s): 512106222 Code(s): N40.0 - BENIGN PROSTATIC HYPERPLASIA WITHOUT LOWER URINRY TRACT SYMP Status: Acute Current Visit: Yes (5) Hypertension SNOMED Code(s): 33222900 Code(s): I10 - ESSENTIAL (PRIMARY) HYPERTENSION Status: Acute Current Visit: Yes (6) Immunosuppression due to chronic steroid use SNOMED Code(s): 896972898, 781079907 Code(s): Z79.52 - SENIOR LIVING (CURRENT) USE OF SYSTEMIC STEROIDS Status: Acute Current Visit: Yes (7) Long-term use of immunosuppressant medication SNOMED Code(s): 045409614 Code(s): Z79.899 - OTHER SENIOR LIVING (CURRENT) DRUG THERAPY Status: Acute Current Visit: Yes (8) Constipation SNOMED Code(s): 89897795 Code(s): K59.00 - CONSTIPATION, UNSPECIFIED Status: Acute Current Visit: No Qualifiers: Constipation type: unspecified constipation type Qualified Code(s): K59.00 - Constipation, unspecified (9) Hypothyroidism SNOMED Code(s): 51533182 Code(s): E03.9 - HYPOTHYROIDISM, UNSPECIFIED Status: Acute Current Visit : No (10) Polypharmacy SNOMED Code(s): 803359362 Code(s): Z79.899 - OTHER HOME HEALTH AIDE CAREGIVER (CURRENT) DRUG THERAPY Status: Acute Current Visit: Yes (11) Macrocytic anemia SNOMED Code(s): 00837386 Code(s): D53.9 - NUTRITIONAL ANEMIA, UNSPECIFIED Status: Acute Current Visit: Yes (12) Hypoalbuminemia SNOMED Code(s): 267888137 Code(s): E88.09 - OTH DISORDERS OF PLASMA-PROTEIN METABOLISM, NEC Status: Acute Current Visit: Yes (13) Chronic kidney disease, stage 3a SNOMED Code(s): 666300142 Code(s): N18.3 - CHRONIC KIDNEY DISEASE, STAGE 3 (MODERATE) Status: Acute Current Visit: Yes - Problem List Review Problem List Initiated/Reviewed/Updated: Yes - Plan Plan:: Fall at home Failure to thrive in adult This morning Has fallen once prior to this time Both him and voiced the need to be placed in a fpc No fractures Currently requiring 1 person assist PLAN - PT/OT evaluation and recommendations - Case management and social economist aware of case Rheumatoid arthritis Long-term use of immunosuppressant medication Immunosuppression due to chronic steroid use Home management with hydroxychloroquine and prednisone Long standing Significant deformities in hands corresponding with long standing disease PLAN - Continue home medications Hypertension BP trend 119-132/59-89 Home management with lisinopril very low dose It is unlikely this dose is actually affecting his BP PLAN - Hold lisinopril - PRN hydralazine - Orthostatic VS in am Chronic kidney disease, stage 3A Macrocytic anemia of chronic disease GFR 57, at baseline B12, folic acid and ferritin negative--> AOCD PLAN - Renally dosed medications - Avoid nephrotoxic agents - Hold lisinopril - Monitor urine output Constipation Usually has a BM every 3-4 days Home management with prune juice and scheduled docusate and senna PLAN - As needed laxatives Hypothyroidism No acute issues Home management with levothyroxine PLAN - Continue home levothyroxine Benign prostate hyperplasia No recent episodes of urinary retention PLAN - Continue home tamsulosin Polypharmacy 16 prescription medications PLAN - Adjust according to BEERs criteria during admission PROPHYLAXIS DVT- TEDs GI- not indicated CODE STATUS: DNR/DNI DISPOSITION: Patient admitted for physical and occupational therapy evaluation who are recommending placement to SNF, accepted at [facility] tomorrow. Discharge in the AM.
[2019-03-05] MEDS: Tamsulosin 0.4 MG Cap.ER PO SCH (20:32)
[2019-03-06] MEDS: Levothyroxine 112 MCG Tab PO SCH (05:37)
[2019-03-06] MEDS: Acetaminophen 325 MG Tab PO PRN (05:37)
[2019-03-06] MEDS: Hydroxychloroquine 200 MG Tab PO SCH (08:19)
[2019-03-06] MEDS: Aspirin 81 MG Tab.EC PO SCH (08:19)
[2019-03-06] MEDS: Cholecalciferol (Vitamin D3) 25 MCG Tab PO SCH (08:19)
[2019-03-06] MEDS: predniSONE 5 MG Tab PO SCH (08:20)
[2019-03-06] MEDS: Carvedilol 3.125 MG Tab PO SCH (08:21)
[2019-03-06] MEDS: Nicotine 21 MG/24 Hr Patch TRDERM SCH (08:21)
[2019-03-06 08:22] VITALS: BP 116/80; PULSE 67
--- NOTE | 2019-03-06 10:14 | PCM.DCSUM1 ---
Discharge Summary - Hospital Course HPI Initial Comments: This is an 88-year-old male with past medical history of hypertension and rheumatoid arthritis who comes to the ED brought by after a fall. As per patient he fell earlier this morning around 4AM. He woke up and went to his closet, when he went to close the door so he could sit in a chair, the he lost his balance and fell. He describes his fall over the other chair and his hands got tangled in the arm rests. He couldn't get up so he called out to his who didn't hear him. He lay on the floor tangled between the chairs for 1 hour until he managed to untangle himself and get help. He denies any chest pain, dizziness, LOC, nausea, vomiting, abdominal discomfort , headaches, seizure movements, auras prior to fall. He also denies any loss of continence both bowel and urinary, altered mental status or head trauma. Diagnosis: Stroke: No - Discharge Data Discharge Date: 03/06/19 Discharge Disposition: Home, Self-Care 01 Condition: Good - Referral to Home Health Primary Care Physician: Anastasia Jenkins MD - Discharge Diagnosis/Problem(s) (1) Fall at home SNOMED Code(s): 28650309 ICD Code: W19.XXXA - UNSPECIFIED FALL, INITIAL ENCOUNTER; Y92.009 - UNSP PLACE IN UNSP NON-INSTITUT (PRIVATE) RESIDENCE PLACE Status: Acute Current Visit: No Qualifiers: Encounter type: initial encounter Qualified Code(s): W19.XXXA - Unspecified fall, initial encounter; Y92.009 - Unspecified place in unspecified non-institutional (private) residence as the place of occurrence of the external cause (2) Failure to thrive in adult SNOMED Code(s): 431209187 ICD Code: R62.7 - ADULT FAILURE TO THRIVE Status: Acute Current Visit: Yes (3) Rheumatoid arthritis SNOMED Code(s): 43333947 ICD Code: M06.9 - RHEUMATOID ARTHRITIS, UNSPECIFIED Status: Acute Current Visit: Yes (4) Benign prostate hyperplasia SNOMED Code(s): 731189156 ICD Code: N40.0 - BENIGN PROSTATIC HYPERPLASIA WITHOUT LOWER URINRY TRACT SYMP Status: Acute Current Visit: Yes (5) Hypertension SNOMED Code(s): 59664832 ICD Code: I10 - ESSENTIAL (PRIMARY) HYPERTENSION Status: Acute Current Visit: Yes (6) Immunosuppression due to chronic steroid use SNOMED Code(s): 207906702, 615050105 ICD Code: Z79.52 - HYDRAULIC ROCK DRILL OPERATOR (CURRENT) USE OF SYSTEMIC STEROIDS Status: Acute Current Visit: Yes (7) Long-term use of immunosuppressant medication SNOMED Code(s): 262724773 ICD Code: Z79.899 - OTHER NURSING HOME (CURRENT) DRUG THERAPY Status: Acute Current Visit: Yes (8) Constipation SNOMED Code(s): 34266831 ICD Code: K59.00 - CONSTIPATION, UNSPECIFIED Status: Acute Current Visit : No Qualifiers: Constipation type: unspecified constipation type Qualified Code(s): K59.00 - Constipation, unspecified (9) Hypothyroidism SNOMED Code(s): 03882352 ICD Code: E03.9 - HYPOTHYROIDISM, UNSPECIFIED Status: Acute Current Visit : No (10) Polypharmacy SNOMED Code(s): 795997381 ICD Code: Z79.899 - OTHER NURSING HOME (CURRENT) DRUG THERAPY Status: Acute Current Visit: Yes (11) Macrocytic anemia SNOMED Code(s): 53162399 ICD Code: D53.9 - NUTRITIONAL ANEMIA, UNSPECIFIED Status: Acute Current Visit: Yes (12) Hypoalbuminemia SNOMED Code(s): 054258168 ICD Code: E88.09 - OTH DISORDERS OF PLASMA-PROTEIN METABOLISM, NEC Status: Acute Current Visit: Yes (13) Chronic kidney disease, stage 3a SNOMED Code(s): 844629056 ICD Code: N18.3 - CHRONIC KIDNEY DISEASE, STAGE 3 (MODERATE) Status: Acute Current Visit: Yes - Patient Summary/Data Consults: Consultations 03/02/19 15:25 Consult to Case Management/Immunopathologist [CONS] Routine OT Evaluation and Treatment [CONS] Routine PT Evaluation and Treatment [CONS] Routine Hospital Course: Admitted for PT and OT evaluation as well as placement No significant changes during admission in management except for discontinuation of antihypertensived and decreased beta debbie dose to improve orthostatic hypotension. Occupational therapy: Treatment Included: TE,TA, activity tolerance, self-care training, t/f training Pt makes nice gains this admission meeting 1/2 OT goals. Pt meets activity tolerance goal. Pt does not meet toileting goal as not attempted further prior to pt d/c. Pt now d/c from IP OT services as he is d/cing from facility to SNF as recommended. Physical therapy: Patient needs assistance with transfer and ambulation. Is not fully independent and home and does need help with dressing (periodically), medication management , meal prep, showering. He does have 14 steps into his home. He has had 2 falls this month. HE is appropriate for SNF placement based on his current functional mobility and history of falls. Based on patients past medical history and current clinical condition he is a moderate level evaluation code. Short term goals and outcomes: Able to ambulate 200ft with FWW and mod I Able to perform all room transfers with mod I Transferred to [facility] - Patient Instructions Diet: Usual Diet as Tolerated Activity: As Tolerated - Discharge Plan *PRESCRIPTION DRUG MONITORING PROGRAM REVIEWED*: No *COPY OF PRESCRIPTION DRUG MONITORING REPORT IN PATIENT YURI: No Home Medications: Home Meds RX: Levothyroxine Sodium [Synthroid] 112 mcg PO ACBREAKFAST 08/08/13 [History] RX: Tamsulosin [Flomax] 0.4 mg PO BEDTIME 10/30/14 [History] RX: Hydroxychloroquine Sulfate 200 mg PO DAILY 11/05/17 [History] RX: predniSONE [Prednisone] 5 mg PO DAILY 11/05/17 [History] RX: Cholecalciferol (Vitamin D3) [Vitamin D3] 2,000 units PO DAILY 10/10/18 [ History] RX: Aspirin [Low Dose Aspirin EC] 81 mg PO DAILY 30 Days tablet. 10/13/18 [Rx ] RX: Carvedilol [Coreg] 3.125 mg PO BID 03/02/19 [History] Capsaicin 0.1% Cream 1 applic TOP TID PRN 03/03/19 [History] RX: Sennosides/Docusate Sodium [Senna Plus 8.6-50 mg Tablet] 1 tab PO BID [History] Patient Handouts: Smokeless Tobacco Information, Adult, Failure to Thrive, Adult, [id number], Steps to Quit Smoking Forms: ED Department Discharge Referrals: Leonidas Tapia MD [Physician] - 03/23/19 11:30 am Anastasia Jenkins MD [Primary Care Provider] - - Discharge Summary/Plan Comment DC Time >30 min.: Yes (120min coordinating logistics of transfer) - General Info Date of Service: 03/06/19 Subjective Update: Feeling ok No pain Slept ok - Patient Data Vitals - Most Recent: Last Vital Signs Temp 97.9 F 03/06/19 08:17 Pulse 67 03/06/19 08:21 Resp 16 03/06/19 08:17 BP 116/80 03/06/19 08:21 Pulse Ox 97 03/06/19 08:17 Weight - Most Recent: 70.987 kg - Exam General: Reports: Alert, Cooperative, No Acute Distress HEENT: Reports: Pupils Equal, Pupils Reactive, EOMI, Mucous Membr. Moist/[place] Neck: Reports: Supple, Trachea Midline, No JVD, No Thyromegaly. Denies: Lymphadenopathy Lungs: Reports: Clear to Auscultation, Decreased Breath Sounds. Denies: Crackles, Rales, Rhonchi, Rub, Wheezing Cardiovascular: Reports: Regular Rate, Regular Rhythm. Denies: Murmurs, Gallops , Rubs GI/Abdominal Exam: Normal Bowel Sounds, Soft, Non-Tender, No Organomegaly, No Distention Back Exam: Reports: Normal Inspection. Denies: CVA Tenderness (L), CVA Tenderness (R) Extremities: Normal Inspection
== END 2019-03-06 13:02 | disposition home or self-care (01) | DRG 641 ==
LOC: JD.ED 10:48 → JD.MS 15:25
PROVIDERS: ADMIT Internal Medicine; ATTEND Internal Medicine
DX: R62.7 Adult failure to thrive (principal); M25.512 Pain in left shoulder; M25.552 Pain in left hip; M06.9 Rheumatoid arthritis, unspecified; H54.7 Unspecified visual loss; H91.93 Unspecified hearing loss, bilateral; I10 Essential (primary) hypertension; N40.0 Benign prostatic hyperplasia without lower urinary tract symptoms; K59.00 Constipation, unspecified; Z66 Do not resuscitate; E03.9 Hypothyroidism, unspecified; G47.00 Insomnia, unspecified; L40.9 Psoriasis, unspecified; Z95.0 Presence of cardiac pacemaker; D53.9 Nutritional anemia, unspecified; E88.09 Other disorders of plasma-protein metabolism, not elsewhere classified; I12.9 Hypertensive chronic kidney disease with stage 1 through stage 4 chronic kidney disease, or unspecified chronic kidney disease; N18.3 Chronic kidney disease, stage 3 (moderate); W19.XXXA Unspecified fall, initial encounter; K21.9 Gastro-esophageal reflux disease without esophagitis; Z96.642 Presence of left artificial hip joint; Z79.52 Long term (current) use of systemic steroids; Z79.899 Other long term (current) drug therapy; Z79.890 Hormone replacement therapy; Z79.82 Long term (current) use of aspirin; Z90.49 Acquired absence of other specified parts of digestive tract; Y92.009 Unspecified place in unspecified non-institutional (private) residence as the place of occurrence of the external cause; Z68.25 Body mass index [BMI] 25.0-25.9, adult
CPT/HCPCS: 36415; 70450; 73030; 73502; 80053; 82607; 82728; 82746; 84134; 85025; 96374; 99285; J1170; 80048; 97110-GO; 97110-GP; 97116-GP; 97162-GP; 97165-GO; 99284; A9270-GY